=== PATIENT | male | born 2000 | race Caucasian/White ===

== ENCOUNTER 2021-05-07 15:21 | Outpatient (CLI) | payer OTHER | END 2021-05-07 15:22 | disposition home or self-care (01) | LOC: BICULT 15:21 | PROVIDERS: ATTEND Family Medicine | DX: N50.89 Other specified disorders of the male genital organs (principal); N44.1 Cyst of tunica albuginea testis; N50.3 Cyst of epididymis | CPT/HCPCS: 76870; 93976 ==